=== PATIENT | male | born 1955 | race American Indian/Alaskan Native ===

== ENCOUNTER 2017-07-16 20:12 | Emergency (ER) | payer OTHER ==
[2017-07-16 21:07] LABS: Basophils % (Auto) 0.8 % (0.0-1.8); Hematocrit 33.7 % (35.5-45.6); Hemoglobin 11.7 gm/dl (11.8-15.2); Mean Corpuscular HGB Conc 35 % (32-34); Mean Corpuscular Hemoglobin 30 pg (28-32); Mean Corpuscular Volume 86 fl (84-94); Platelet Count 192 K/mm3 (140-440); Red Blood Count 3.91 M/mm3 (3.65-5.03); Red Cell Distribution Width 13.1 % (13.2-15.2); White Blood Count 5.1 K/mm3 (4.5-11.0)
[2017-07-16 21:17] LABS: INR 0.97 (0.87-1.13)
[2017-07-16 21:18] LABS: Partial Thromboplastin Time 33.2 Sec. (24.2-36.6)
[2017-07-16 21:29] LABS: Anion Gap 20 mmol/L; BUN/Creatinine Ratio 14.28; Blood Urea Nitrogen 10 mg/dL (9-20); Calcium 9.2 mg/dL (8.4-10.2); Carbon Dioxide 23 mmol/L (22-30); Chloride 93.6 mmol/L (98-107); Glucose 119 mg/dL (75-100); Potassium 3.5 mmol/L (3.6-5.0); Sodium 133 mmol/L (137-145)
--- NOTE | 2017-07-16 21:55 | Cat Scan Report ---
FINAL REPORT PROCEDURE: CT HEAD/BRAIN WO CON TECHNIQUE: Computerized tomography of the head was performed without contrast material. HISTORY: neuro deficits \T\lt; 6hrs or sx present upon awakening COMPARISON: No prior studies are available for comparison. FINDINGS: Skull and scalp: Normal. Paranasal sinuses: Normal. Ventricles and subarachnoid spaces: Mild dilatation. Cerebrum: Mild atrophy. There is diminished density of the left frontal and temporal regions with volume loss. There is peripheral increased density suggesting hemorrhagic transformation. Cerebellum and brainstem: No evidence of hemorrhage, acute infarction or mass. Vasculature: Normal. Comments: None. IMPRESSION: Left frontal temporal infarct with hemorrhagic transformation. No shift of midline structures. Results discussed with Dr. Cordero at 9:50 p.m.
--- NOTE | 2017-07-16 23:55 | Emergency Department Report ---
HPI - General Chief Complaint: Neuro Symptoms/Deficit Time Seen by Provider: 07/16/17 22:02 - HPI HPI: This is a 61-year-old -Citizen Of [place] male who presents to the ED with severe right facial numbness, dysarthria, right upper extremity weakness. Patient stated history of CVA in April after which he had long rehabilitation stay with improvement of his symptoms. 6 hours ago he started having the above-mentioned symptoms worse than before. NIH SCALE: 2 ED Past Medical Hx - Past Medical History Previous Medical History?: Yes Hx Hypertension: Yes Hx CVA: Yes (05/15/17 & ~06/09/17) Hx Diabetes: Yes Additional medical history: Rt side weakness & slurred speech from prior CVAs - Surgical History Past Surgical History?: No - Social History Smoking Status: Never Smoker Substance Use Type: None - Medications Home Medications: Home Medications Medication Instructions Recorded Confirmed Last Taken Type Metformin HCl [Metformin HCl ER] 500 mg PO QDAY 10/16/13 07/16/17 07/15/17 History Amantadine [Symmetrel] 100 mg PO BID 07/16/17 07/16/17 07/15/17 History AtorvaSTATin [Lipitor] 40 mg PO QHS 07/16/17 07/16/17 07/15/17 History Citalopram [Celexa] 10 mg PO DAILY 07/16/17 07/16/17 07/15/17 History Insulin Glargine [Lantus] 0 units SQ QHS 07/16/17 07/16/17 07/15/17 History Insulin Lispro [HumaLOG VIAL] 0 units SQ AC 07/16/17 07/16/17 07/15/17 History Tamsulosin [Flomax] 0.4 mg PO QDAY 07/16/17 07/16/17 07/15/17 History amLODIPine [Norvasc] 10 mg PO DAILY 07/16/17 07/16/17 07/15/17 History ED Review of Systems ROS: Stated complaint: TREMORS Other details as noted in HPI Comment: All other systems reviewed and negative Musculoskeletal: as per HPI Neurological: headache, weakness, numbness, paresthesias Physical Exam - Physical Exam Vital Signs: Vital Signs 07/16/17 07/16/17 07/16/17 20:15 21:58 22:01 Temperature 97.7 F Pulse Rate 77 83 77 Respiratory 20 12 14 Rate Blood Pressure 140/90 156/84 O2 Sat by Pulse 100 100 Oximetry 07/16/17 07/16/17 22:03 23:00 Temperature 97.7 F Pulse Rate 98 H 66 Respiratory 18 11 L Rate Blood Pressure 156/84 142/83 O2 Sat by Pulse 100 100 Oximetry Physical Exam: - General Limitations: No Limitations General appearance: alert, in no apparent distress - Head Head exam: Present: atraumatic, normocephalic - Eye Eye exam: Present: normal appearance - ENT ENT exam: Present: mucous membranes moist - Neck Neck exam: Present: normal inspection - Respiratory Respiratory exam: Present: normal lung sounds bilaterally. Absent: respiratory distress - Cardiovascular Cardiovascular Exam: Present: normal rhythm, tachycardia. Absent: systolic murmur, diastolic murmur, rubs, gallop - GI/Abdominal GI/Abdominal exam: Present: soft, normal bowel sounds - Extremities Exam Extremities exam: Present: normal inspection - Back Exam Back exam: Present: normal inspection - Neurological Exam Neurological exam: Present: alert, oriented X3, sensory deficit right face, right upper extremity weakness, Strength: 4/5. - Skin Skin exam: Present: warm, dry, intact, normal color. Absent: rash ED Course Vital Signs 07/16/17 07/16/17 07/16/17 20:15 21:58 22:01 Temperature 97.7 F Pulse Rate 77 83 77 Respiratory 20 12 14 Rate Blood Pressure 140/90 156/84 O2 Sat by Pulse 100 100 Oximetry 07/16/17 07/16/17 22:03 23:00 Temperature 97.7 F Pulse Rate 98 H 66 Respiratory 18 11 L Rate Blood Pressure 156/84 142/83 O2 Sat by Pulse 100 100 Oximetry - Reevaluation(s) Reevaluation #1: 07/16/17 23:51 Patient accepted at [facility] for our level of care. ED Medical Decision Making - Lab Data Result diagrams: 07/16/17 20:55 07/16/17 20:55 Critical care attestation.: If time is entered above; I have spent that time in minutes in the direct care of this critically ill patient, excluding procedure time. ED Disposition Clinical Impression: Hemorrhagic cerebrovascular accident (CVA) Disposition: DC/TX-70 ANOTHER TYPE HLTHCARE Is pt being admited?: No Does the pt Need Aspirin: No Condition: Stable Referrals: AKINMADE,CHAVEZ OMOLOLA, MD [Primary Care Provider] - 3-5 Days
[2017-07-17 02:43] VITALS: BP 152/90
--- NOTE | 2017-07-17 07:37 | XRay Report ---
AP CHEST: HISTORY: CVA AP view of the chest demonstrates a normal mediastinal and cardiac contour with clear lungs and normal bony and soft tissue structures. IMPRESSION: Unremarkable AP chest.
== END 2017-07-17 02:45 | disposition other institution (70) ==
LOC: ED 20:12
DX: I62.9 Nontraumatic intracranial hemorrhage, unspecified (principal); I10 Essential (primary) hypertension; E11.9 Type 2 diabetes mellitus without complications; Z79.4 Long term (current) use of insulin
CPT/HCPCS: 36415; 70450; 71010; 80048; 84484; 85025; 85610; 85670; 85730; 93005; 93010

== ENCOUNTER 2018-03-06 03:56 | Inpatient (IN) | payer SELFPAY ==
[2018-03-06 04:51] LABS: Basophils # (Auto) 0.1 K/mm3 (0.0-0.1); Basophils % (Auto) 0.8 % (0.0-1.8); Eosinophils # (Auto) 0.4 K/mm3 (0.0-0.4); Eosinophils % (Auto) 4.8 % (0.0-4.3); Hematocrit 36.7 % (35.5-45.6); Hemoglobin 11.9 gm/dl (11.8-15.2); Lymphocytes # (Auto) 4.1 K/mm3 (1.2-5.4); Lymphocytes % (Auto) 44.4 % (13.4-35.0); Mean Corpuscular HGB Conc 32 % (32-34); Mean Corpuscular Hemoglobin 29 pg (28-32); Mean Corpuscular Volume 89 fl (84-94); Monocytes # (Auto) 0.6 K/mm3 (0.0-0.8); Monocytes % (Auto) 6.4 % (0.0-7.3); Platelet Count 208 K/mm3 (140-440); Red Blood Count 4.15 M/mm3 (3.65-5.03); Red Cell Distribution Width 13.8 % (13.2-15.2)
[2018-03-06 04:59] LABS: Bilirubin,Urine NEG (Negative); Blood,Urine MOD (Negative); Color,Urine Yellow (Yellow); Urobilinogen,Urine < 2.0 mg/dL (<2.0)
[2018-03-06 05:07] LABS: Amphetamine Screen,Urine PRESUMPTIVE NEGATIVE; Cannabinoid Screen,Urine PRESUMPTIVE NEGATIVE; Cocaine Screen,Urine PRESUMPTIVE NEGATIVE; Methadone Screen,Urine PRESUMPTIVE NEGATIVE; Opiate Screen,Urine PRESUMPTIVE NEGATIVE
[2018-03-06 05:09] LABS: Alanine Aminotransferase 28 units/L (7-56); Albumin 4.1 g/dL (3.9-5); BUN/Creatinine Ratio 12; Blood Urea Nitrogen 12 mg/dL (9-20); Calcium 8.8 mg/dL (8.4-10.2); Hemolysis Index 12
[2018-03-06 05:19] LABS: Benzodiazepines Screen,Urine PRESUMPTIVE POSITIVE
--- NOTE | 2018-03-06 05:27 | Cat Scan Report ---
FINAL REPORT PROCEDURE: CT HEAD/BRAIN WO CON TECHNIQUE: Computerized tomography of the head was performed without contrast material. HISTORY: seizure COMPARISON: 07/16/2017 FINDINGS: Skull and scalp: Normal. Paranasal sinuses: Normal. Ventricles and subarachnoid spaces: There is central and cortical atrophy. There is cavum septum pellucidum.. Cerebrum: No evidence of hemorrhage, acute infarction or mass. There is encephalomalacia in the left frontal and temporal lobes or an old infarct. There is chronic deep white matter ischemic gliosis. Cerebellum and brainstem: No evidence of hemorrhage, acute infarction or mass. There is an old lacunar infarct defect in the left side of the efra. Vasculature: Normal. Comments: None. IMPRESSION: There are chronic ischemic and involutional changes. There is an old infarct in the left frontal and temporal lobe. There is an old lacunar infarct in the left side of the efra. There is no hemorrhage, edema, mass, mass effect or midline shift.
[2018-03-06] MEDS: ATIVAN IV PRN ×2 (07:03→15:16)
--- NOTE | 2018-03-06 07:18 | Emergency Department Report ---
ED Seizure HPI - General Chief Complaint: Seizure Stated Complaint: SEIZURE Time Seen by Provider: 03/06/18 07:17 Source: EMS Mode of arrival: Stretcher Limitations: Altered Mental Status - History of Present Illness Initial Comments: 62 year old male with a history of seizures status post CVA in April. His last seizure was in May. He arrives with his states that he is taking his Keppra. He had 3 seizures that were witnessed this morning. He was transferred via EMS and given Ativan. He is postictal at this time. His is able to tell me that he did not suffer any injury. The patient is responsive but still lethargic. He does not complain of pain. His states that he has a residual right fritz-paracystic secondary to his previous stroke but he is able to ambulate. MD Complaint: seizure -: hour(s) Description of Episode: tonic-clonic movement -: minutes(s) Witnessed:: Yes Trauma: No Seizure History: known seizure disorder Place: home Treatments Prior to Arrival: benzodiazepines (on arrival ) - Related Data Home Medications Medication Instructions Recorded Confirmed Last Taken Metformin HCl [Metformin HCl ER] 500 mg PO QDAY 10/16/13 03/06/18 07/15/17 Amantadine [Symmetrel] 100 mg PO BID 07/16/17 03/06/18 07/15/17 AtorvaSTATin [Lipitor] 40 mg PO QHS 07/16/17 03/06/18 07/15/17 Tamsulosin [Flomax] 0.4 mg PO QDAY 07/16/17 03/06/18 07/15/17 amLODIPine [Norvasc] 10 mg PO DAILY 07/16/17 03/06/18 07/15/17 Aspirin [Low Dose Aspirin EC] 81 mg PO DAILY 03/06/18 03/06/18 Unknown Magnesium Oxide 400 mg PO DAILY 03/06/18 03/06/18 Unknown Mirtazapine 30 mg PO HS 03/06/18 03/06/18 Unknown levETIRAcetam [Keppra TAB] 1,000 mg PO BID 03/06/18 03/06/18 Unknown Allergies Allergy/AdvReac Type Severity Reaction Status Date / Time No Known Allergies Allergy Unverified 10/16/13 18:17 ED Review of Systems ROS: Stated complaint: SEIZURE Other details as noted in HPI Comment: Unobtainable due to pts medical conditions (still post ictal but no complaint) ED Past Medical Hx - Past Medical History Previous Medical History?: Yes Hx Hypertension: Yes Hx CVA: Yes (05/15/17 & ~06/09/17) Hx Diabetes: Yes Hx Seizures: Yes Additional medical history: Rt side weakness & slurred speech from prior CVAs - Social History Smoking Status: Former Smoker Substance Use Type: None - Medications Home Medications: Home Medications Medication Instructions Recorded Confirmed Last Taken Type Metformin HCl [Metformin HCl ER] 500 mg PO QDAY 10/16/13 03/06/18 07/15/17 History Amantadine [Symmetrel] 100 mg PO BID 07/16/17 03/06/18 07/15/17 History AtorvaSTATin [Lipitor] 40 mg PO QHS 07/16/17 03/06/18 07/15/17 History Tamsulosin [Flomax] 0.4 mg PO QDAY 07/16/17 03/06/18 07/15/17 History amLODIPine [Norvasc] 10 mg PO DAILY 07/16/17 03/06/18 07/15/17 History Aspirin [Low Dose Aspirin EC] 81 mg PO DAILY 03/06/18 03/06/18 Unknown History Magnesium Oxide 400 mg PO DAILY 03/06/18 03/06/18 Unknown History Mirtazapine 30 mg PO HS 03/06/18 03/06/18 Unknown History levETIRAcetam [Keppra TAB] 1,000 mg PO BID 03/06/18 03/06/18 Unknown History ED Physical Exam - General Limitations: Altered Mental Status General appearance: alert, in no apparent distress - Head Head exam: Present: atraumatic, normocephalic - Eye Eye exam: Present: normal appearance, PERRL, EOMI. Absent: scleral icterus - ENT ENT exam: Present: normal exam, mucous membranes moist - Neck Neck exam: Present: normal inspection. Absent: tenderness, meningismus - Respiratory Respiratory exam: Present: normal lung sounds bilaterally. Absent: respiratory distress - Cardiovascular Cardiovascular Exam: Present: regular rate, normal rhythm. Absent: systolic murmur, diastolic murmur, rubs, gallop - GI/Abdominal GI/Abdominal exam: Present: soft, normal bowel sounds. Absent: distended, tenderness, guarding, rebound, rigid - Rectal Rectal exam: Present: deferred - Extremities Exam Extremities exam: Present: normal inspection - Back Exam Back exam: Present: normal inspection - Neurological Exam Neurological exam: Present: altered, other (patient does appear to have a right hemiparesthesias right arm greater than right leg but likely right leg weakness as well) - Psychiatric Psychiatric exam: Present: normal mood, flat affect - Skin Skin exam: Present: warm, dry, intact, normal color. Absent: rash ED Course Vital Signs 03/06/18 03/06/18 03/06/18 04:03 04:10 05:46 Temperature 98.3 F 98.3 F Pulse Rate 120 H 120 H 89 Respiratory 22 22 13 Rate Blood Pressure 94/56 119/77 Blood Pressure 94/56 [Left] O2 Sat by Pulse 100 100 100 Oximetry 03/06/18 03/06/18 03/06/18 06:00 06:16 06:30 Temperature Pulse Rate 101 H 104 H 91 H Respiratory 16 17 17 Rate Blood Pressure 136/86 136/86 140/81 Blood Pressure [Left] O2 Sat by Pulse 100 100 Oximetry 03/06/18 03/06/18 03/06/18 06:46 07:00 07:16 Temperature Pulse Rate 97 H 113 H 106 H Respiratory 17 19 16 Rate Blood Pressure 140/81 150/79 150/79 Blood Pressure [Left] O2 Sat by Pulse 100 100 Oximetry 03/06/18 03/06/18 03/06/18 07:30 07:46 08:00 Temperature 98.3 F Pulse Rate 104 H 108 H 96 H Respiratory 14 16 16 Rate Blood Pressure 131/88 131/88 124/75 Blood Pressure 131/88 [Left] O2 Sat by Pulse 100 100 100 Oximetry - Reevaluation(s) Reevaluation #1: The patient is given a gram of Keppra. He will be admitted by the hospitalist service further care and evaluation. A CT of his head showed nothing acute. 03/06/18 09:49 ED Medical Decision Making - Lab Data Result diagrams: 03/06/18 04:35 03/06/18 04:35 Laboratory Results - last 24 hr 03/06/18 03/06/18 03/06/18 04:22 04:22 04:35 WBC 9.2 RBC 4.15 Hgb 11.9 Hct 36.7 MCV 89 MCH 29 MCHC 32 RDW 13.8 Plt Count 208 Lymph % (Auto) 44.4 H [place] % (Auto) 6.4 Eos % (Auto) 4.8 H Baso % (Auto) 0.8 Lymph # 4.1 [place] # 0.6 Eos # 0.4 Baso # 0.1 Seg Neutrophils % 43.6 Seg Neutrophils # 4.0 Sodium Potassium Chloride Carbon Dioxide Anion Gap BUN Creatinine Estimated GFR BUN/Creatinine Ratio Glucose Calcium Total Bilirubin AST ALT Alkaline Phosphatase Total Protein Albumin Albumin/Globulin Ratio Urine Color Yellow Urine Turbidity Clear Urine pH 6.0 Ur Specific [place] 1.010 Urine Protein 100 mg/dl Urine Glucose (UA) Neg Urine Ketones Neg Urine Blood Mod Urine Nitrite Neg Urine Bilirubin Neg Urine Urobilinogen < 2.0 Ur Leukocyte Esterase Neg Urine WBC (Auto) 2.0 Urine RBC (Auto) 2.0 Urine Opiates Screen Presumptive negative Urine Methadone Screen Presumptive negative Ur Barbiturates Screen Presumptive negative Ur Phencyclidine Scrn Presumptive negative Ur Amphetamines Screen Presumptive negative U Benzodiazepines Scrn Presumptive positive Urine Cocaine Screen Presumptive negative U Marijuana (THC) Screen Presumptive negative Drugs of Abuse Note Disclamer 03/06/18 04:35 WBC RBC Hgb Hct MCV MCH MCHC RDW Plt Count Lymph % (Auto) [place] % (Auto) Eos % (Auto) Baso % (Auto) Lymph # [place] # Eos # Baso # Seg Neutrophils % Seg Neutrophils # Sodium 137 Potassium 3.7 Chloride 94.0 L Carbon Dioxide 10 L Anion Gap 37 BUN 12 Creatinine 1.0 Estimated GFR > 60 BUN/Creatinine Ratio 12 Glucose 230 H Calcium 8.8 Total Bilirubin 0.30 AST 20 ALT 28 Alkaline Phosphatase 91 Total Protein 7.4 Albumin 4.1 Albumin/Globulin Ratio 1.2 Urine Color Urine Turbidity Urine pH Ur Specific [place] Urine Protein Urine Glucose (UA) Urine Ketones Urine Blood Urine Nitrite Urine Bilirubin Urine Urobilinogen Ur Leukocyte Esterase Urine WBC (Auto) Urine RBC (Auto) Urine Opiates Screen Urine Methadone Screen Ur Barbiturates Screen Ur Phencyclidine Scrn Ur Amphetamines Screen U Benzodiazepines Scrn Urine Cocaine Screen U Marijuana (THC) Screen Drugs of Abuse Note - Radiology Data Radiology results: report reviewed Critical care attestation.: If time is entered above; I have spent that time in minutes in the direct care of this critically ill patient, excluding procedure time. ED Disposition Clinical Impression: Recurrent seizures, History of CVA (cerebrovascular accident) Disposition: DC-01 TO HOME OR SELFCARE Is pt being admited?: Yes Does the pt Need Aspirin: Yes Condition: Stable Referrals: RAMÓN CROW MD [Primary Care Provider] - 3-5 Days Time of Disposition: 09:50
[2018-03-06] MEDS ORDERED: KEPPRA 1,000 MG/NS 0.75% 100ML 1,000 MG/100 ML BAG IV ONE (07:19)
[2018-03-06] MEDS ORDERED: ASPIRIN PO ONE (09:50)
--- NOTE | 2018-03-06 10:36 | History and Physical Report ---
History of Present Illness Date of examination: 03/06/18 Date of admission: 03/06/18. History of present illness: This is 62 year old male with a history of seizures on keppra, status post CVA with right hameparesis but ambulatory at his baseline arrived with his by EMS as he had 3 witnessed seizure episodes this morning. He was transferred via EMS and given Ativan on route. He is postictal at this time. there is no repot of any head injury. The patient is responsive but still lethargic in the ER. He does not complain of any chest pain, focal deficit, headache or vision loss. head Ct in the ER showed prior CVA but no new finding. he was loaded with Iv keppra in the Er. he will be admitted for further evaluation and management. Past Medical History: Hypertension, diabetes, tendinitis, CVA Past Surgical History: denies Family History: (-) known inherited disease Social History: Former smoker, quit 10 years ago. Denies drinking or drug use Allergies: NKDA Review of System: Constitutional: no fever, no chills, no weight loss Ears, eyes, nose, mouth and throat: no nasal congestion, no nasal discharge, no sinus pressure, no vision change, no red eye. Neck: No neck pain or rigidity. Cardiovascular: No chest pain, no orthopnea, no palpitations, no leg swelling Respiratory: No shortness of breath, no cough, no congestion, no wheezing Gastrointestinal: no abdominal pain, no nausea, no vomiting Genitourinary : no dysuria, no hematuria Musculoskeletal: no joint swelling or muscle ache Integumentary: no rash, no pruritis Neurological: no parathesias, no numbness, no tingling Endocrine: no cold or heat intolerance, no polyuria or polydipsia Hematologic/Lymphatic: no easy bruising, no easy bleeding, no gland swelling Allergic/Immunologic: no urticaria, no angioedema. Medications and Allergies Allergies Allergy/AdvReac Type Severity Reaction Status Date / Time No Known Allergies Allergy Unverified 10/16/13 18:17 Home Medications Medication Instructions Recorded Confirmed Last Taken Type Metformin HCl [Metformin HCl ER] 500 mg PO QDAY 10/16/13 03/06/18 07/15/17 History Amantadine [Symmetrel] 100 mg PO BID 07/16/17 03/06/18 07/15/17 History AtorvaSTATin [Lipitor] 40 mg PO QHS 07/16/17 03/06/18 07/15/17 History Tamsulosin [Flomax] 0.4 mg PO QDAY 07/16/17 03/06/18 07/15/17 History amLODIPine [Norvasc] 10 mg PO DAILY 07/16/17 03/06/18 07/15/17 History Aspirin [Low Dose Aspirin EC] 81 mg PO DAILY 03/06/18 03/06/18 Unknown History Magnesium Oxide 400 mg PO DAILY 03/06/18 03/06/18 Unknown History Mirtazapine 30 mg PO HS 03/06/18 03/06/18 Unknown History levETIRAcetam [Keppra TAB] 1,000 mg PO BID 03/06/18 03/06/18 Unknown History Active Meds: Active Medications Amantadine HCl (Symmetrel) 100 mg PO BID [facility] Amlodipine Besylate (Norvasc) 10 mg PO DAILY [facility] Aspirin (Halfprin Ec) 81 mg PO DAILY [facility] Atorvastatin Calcium (Lipitor) 40 mg PO QHS [facility] Enoxaparin Sodium (Lovenox) 40 mg SUB-Q QDAY [facility] Insulin Human Regular (Humulin R) 0 units SUB-Q ACHS [facility]; Protocol Lorazepam (Ativan) 2 mg IV Q1H PRN PRN Reason: Seizures Last Admin: 03/06/18 07:03 Dose: 2 mg Magnesium Oxide (Mag-Ox) 400 mg PO DAILY [facility] Mirtazapine (Remeron) 30 mg PO HS [facility] Miscellaneous Medication (Levetiracetam [Keppra Tab]) 1,000 mg PO BID [facility] Tamsulosin HCl (Flomax) 0.4 mg PO QDAY [facility] Exam - Physical Exam Narrative exam: GENERAL: well-developed and well-nourished AAM lying on bed appeared to be in no discomfort. Appears slightly lethargic HEENT: Normocephalic. Atraumatic. No conjunctival congestion or icterus. Patient has moist mucous membranes. NECK: Supple. Trachea midline. CHEST/LUNGS: Clear to auscultated bilaterally, breathing nonlabored. No wheezes crackles or rhonchi. HEART/CARDIOVASCULAR: Regular in rate and rhythm. S1 and S2 positive. ABDOMEN: Abdomen is soft, nontender. Patient has normal bowel sounds. SKIN: There is no rash. Warm and dry. NEURO: Right-sided motor deficit. Follows command. MUSCULOSKELETAL: No joint effusion or tenderness. EXTRIMITY: No edema, no cyanosis or clubbing. PSYCH: No agitation. - Constitutional Vitals: Temp Pulse Resp BP Pulse Ox 98.3 F 96 H 16 124/75 100 03/06/18 07:30 03/06/18 08:00 03/06/18 08:00 03/06/18 08:00 03/06/18 08:00 Results - Labs CBC & Chem 7: 03/06/18 04:35 03/06/18 04:35 Labs: Abnormal lab results 03/06/18 03/06/18 Range/Units 04:35 04:35 Lymph % (Auto) 44.4 H (13.4-35.0) % Eos % (Auto) 4.8 H (0.0-4.3) % Chloride 94.0 L (98-107) mmol/L Carbon Dioxide 10 L (22-30) mmol/L Glucose 230 H (75-100) mg/dL - Imaging and Cardiology CT Scan - head: report reviewed (CT head: There are chronic ischemic and involutional changes. There is an old infarct in the left frontal and temporal lobe, old lacunar infarct in the left side of the efra. 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 - We'll consult neurology and resume his home regimen of Keppra - We'll also obtain EEG - We'll resume all home medications - Place on ADA diet and sliding scale insulin - Upper check every before meals at bedtime - DVT prophylaxis with Lovenox, GI prophylaxis with Pepcid - We'll monitor clinically with frequent neuro exam - PT eval before discharge
[2018-03-06] MEDS: HumuLIN R SUB-Q SCH ×2 (11:48→17:42)
[2018-03-06] MEDS ORDERED: ATIVAN IV PRN (13:25)
--- NOTE | 2018-03-06 15:42 | Consultation ---
History of Present Illness Consult date: 03/06/18 History of present illness: plan to add vimpat for seizure control as there was breakthrough seizure current dose of keppr is appropriate Medications and Allergies Allergies Allergy/AdvReac Type Severity Reaction Status Date / Time No Known Allergies Allergy Unverified 10/16/13 18:17 Home Medications Medication Instructions Recorded Confirmed Last Taken Type Metformin HCl [Metformin HCl ER] 500 mg PO QDAY 10/16/13 03/06/18 07/15/17 History Amantadine [Symmetrel] 100 mg PO BID 07/16/17 03/06/18 07/15/17 History AtorvaSTATin [Lipitor] 40 mg PO QHS 07/16/17 03/06/18 07/15/17 History Tamsulosin [Flomax] 0.4 mg PO QDAY 07/16/17 03/06/18 07/15/17 History amLODIPine [Norvasc] 10 mg PO DAILY 07/16/17 03/06/18 07/15/17 History Aspirin [Low Dose Aspirin EC] 81 mg PO DAILY 03/06/18 03/06/18 Unknown History Magnesium Oxide 400 mg PO DAILY 03/06/18 03/06/18 Unknown History Mirtazapine 30 mg PO HS 03/06/18 03/06/18 Unknown History levETIRAcetam [Keppra TAB] 1,000 mg PO BID 03/06/18 03/06/18 Unknown History Active Meds: Active Medications Amantadine HCl (Symmetrel) 100 mg PO BID [facility] Amlodipine Besylate (Norvasc) 10 mg PO DAILY [facility] Aspirin (Halfprin Ec) 81 mg PO DAILY [facility] Atorvastatin Calcium (Lipitor) 40 mg PO QHS [facility] Enoxaparin Sodium (Lovenox) 40 mg SUB-Q QDAY@1000 [facility] Insulin Human Regular (Humulin R) 0 units SUB-Q ACHS [facility]; Protocol Last Admin: 03/06/18 11:48 Dose: Not Given Levetiracetam (Keppra) 1,000 mg PO BID [facility] Lorazepam (Ativan) 2 mg IV Q1H PRN PRN Reason: Seizures Last Admin: 03/06/18 15:16 Dose: 2 mg Lorazepam (Ativan) 2 mg IV Q4H PRN PRN Reason: Agitation Magnesium Oxide (Mag-Ox) 400 mg PO DAILY [facility] Mirtazapine (Remeron) 30 mg PO HS [facility] Tamsulosin HCl (Flomax) 0.4 mg PO QDAY [facility] Physical Examination - Vital Signs Vital Signs: Vital Signs Temp Pulse Resp BP Pulse Ox 98.3 F 120 H 22 94/56 100 03/06/18 04:03 03/06/18 04:03 03/06/18 04:03 03/06/18 04:03 03/06/18 04:03 Results - Laboratory Findings CBC and BMP: 03/06/18 04:35 03/06/18 04:35 Abnormal Lab Findings: Abnormal Labs 03/06/18 03/06/18 03/06/18 04:35 04:35 11:51 Lymph % (Auto) 44.4 H Eos % (Auto) 4.8 H Chloride 94.0 L Carbon Dioxide 10 L Glucose 230 H POC Glucose 110 H
[2018-03-06] MEDS ORDERED: NON-FORMULARY (Levetiracetam [Keppra Tab] 1,000 MG) PO SCH (22:00)
[2018-03-06] MEDS: VIMPAT PO SCH (23:30)
[2018-03-06] MEDS: SYMMETREL PO SCH (23:30)
[2018-03-06] MEDS: KEPPRA PO SCH (23:30)
[2018-03-06] MEDS: REMERON PO SCH (23:30)
[2018-03-07] MEDS: HumuLIN R SUB-Q SCH ×5 (01:42→22:55)
--- NOTE | 2018-03-07 09:51 | Progress Note ---
Subjective Date of service: 03/07/18 Interval history: discussed the new onset of seizures with suspect this is due to recent sstroke vimpat added for seizure control EEG tomorrow Objective - Vital Sign Vital Signs - 12hr 03/06/18 03/06/18 03/07/18 22:00 23:16 04:42 Temperature 98.8 F 98.2 F Pulse Rate 78 71 Pulse Rate [ 85 From Monitor] Respiratory 18 18 18 Rate Blood Pressure 142/92 131/84 O2 Sat by Pulse 100 100 Oximetry 03/07/18 07:36 Temperature 97.6 F Pulse Rate 69 Pulse Rate [ From Monitor] Respiratory 18 Rate Blood Pressure 129/80 O2 Sat by Pulse 100 Oximetry - Laboratory Findings CBC and BMP: 03/06/18 04:35 03/06/18 04:35 Abnormal Lab Findings: Abnormal Labs 03/06/18 03/06/18 03/06/18 04:35 04:35 11:51 Lymph % (Auto) 44.4 H Eos % (Auto) 4.8 H Chloride 94.0 L Carbon Dioxide 10 L Glucose 230 H POC Glucose 110 H 03/07/18 03/07/18 01:29 06:30 Lymph % (Auto) Eos % (Auto) Chloride Carbon Dioxide Glucose POC Glucose 148 H 154 H
[2018-03-07] MEDS: NORVASC PO SCH (09:59)
[2018-03-07] MEDS: MAG-OX PO SCH (09:59)
[2018-03-07] MEDS: VIMPAT PO SCH ×2 (09:59→22:55)
[2018-03-07] MEDS: KEPPRA PO SCH ×2 (09:59→22:55)
[2018-03-07] MEDS: HALFPRIN EC PO SCH (10:00)
[2018-03-07] MEDS: FLOMAX PO SCH (10:00)
[2018-03-07] MEDS: SYMMETREL PO SCH ×2 (10:00→22:55)
[2018-03-07] MEDS ORDERED: LOVENOX SUB-Q SCH (10:00)
[2018-03-07] MEDS: LOVENOX SUB-Q SCH (10:00)
--- NOTE | 2018-03-07 11:14 | Consultation ---
HISTORY OF PRESENT ILLNESS: This is a 62-year-old black male that presents to [facility] after having had a generalized seizure. Review of his old records indicates that he has had a prior history of chronic and subchronic infarcts in the left cerebral hemisphere, old lacunar infarcts, also superficial cortical infarcts in the frontal and temporal area. He had not been taking anticonvulsant therapy in the past. He was noticed by his when he woke up to be jerking as a generalized seizure. Laboratories at that point showed his glucose to be 110. Remainder of the other laboratories showed the creatinine to be 1.1. Liver function studies, AST 20, ALT 28. PHYSICAL EXAMINATION: GENERAL: On my examination of the patient, at this point, he is fully alert, responsive. Yarn Rewinder strength is equal. Motor tone normal. Speech clear. No aphasia present. VITAL SIGNS: Reveal blood pressure to be 131/84, temperature 98.2, pulse rate 71, respirations 18. He is afebrile. NECK: Supple. NEUROLOGIC: Motor tone normal. No focal seizure activity present. Motor and sensory examination otherwise unremarkable. The patient is fully alert, conscious, oriented x 3 and appropriate. IMPRESSION: This patient has had multiple strokes in the left cerebral hemisphere all ischemic from appearances. This was a generalized seizure. He should be continued on anticonvulsant medication at the time of discharge. I do notice that his blood sugars have been elevated. This may have been also an aggravating factor with at least 1 presenting glucose of being 230. Discussed the case with the , probably Keppra therapy will be the appropriate discharge medication at 1000 mg a day and there is this question as to whether he may have had breakthrough seizures, I am not sure whether he was in fact taking any anticonvulsants. I will double check this with the to be certain that this was not a breakthrough seizure while he was on Keppra initially. If he was then simply increase the dose to 2000 mg a day or sometimes 750 b.i.d. might even be appropriate rather than adding a second drug as often just simply increasing the dose of Keppra will reapproximate seizure control. JOB# [id number] RUBINA/NTS
--- NOTE | 2018-03-07 14:25 | Progress Note ---
Assessment and Plan Breakthrough seizures History of old CVA with right hemiparesis Hypertension, benign, on amlodipine at home Diabetes mellitus type 2, on oral hypoglycemic HLD, on statin Underlying dementia, appears to be at baseline - Monitor patient to telemetry. - Consult neurology and resumed his home regimen of Keppra, also added vimpat - plan for EEG tomorrow - cont all home medications - cont on ADA diet and sliding scale insulin - BG check every before meals at bedtime - DVT prophylaxis with Lovenox, GI prophylaxis with Pepcid - We'll monitor clinically with frequent neuro exam - PT eval ordered Subjective Date of service: 03/07/18 Interval history: Pt seen and examined no acute event O/N no further seizure episode Updated at bedside PT eval ordered Objective - Constitutional Vitals: Vital Signs - 12hr 03/07/18 03/07/18 03/07/18 04:42 07:36 09:59 Temperature 98.2 F 97.6 F Pulse Rate 71 69 Respiratory 18 18 Rate Blood Pressure 131/84 129/80 139/90 O2 Sat by Pulse 100 100 Oximetry 03/07/18 12:20 Temperature 98.5 F Pulse Rate 84 Respiratory 18 Rate Blood Pressure 120/78 O2 Sat by Pulse 100 Oximetry - Labs CBC & Chem 7: 03/06/18 04:35 03/06/18 04:35 Labs: Abnormal lab results 03/07/18 03/07/18 03/07/18 Range/Units 01:29 06:30 12:27 POC Glucose 148 H 154 H 150 H (70-105)
[2018-03-07] MEDS: REMERON PO SCH (22:55)
[2018-03-08] MEDS: HumuLIN R SUB-Q SCH ×2 (07:30→11:30)
[2018-03-08] MEDS: KEPPRA PO SCH (10:10)
[2018-03-08] MEDS: HALFPRIN EC PO SCH (10:11)
[2018-03-08] MEDS: MAG-OX PO SCH (10:11)
[2018-03-08] MEDS: NORVASC PO SCH (10:11)
[2018-03-08] MEDS: FLOMAX PO SCH (10:11)
[2018-03-08] MEDS: VIMPAT PO SCH (10:11)
[2018-03-08] MEDS: SYMMETREL PO SCH (10:12)
[2018-03-08] MEDS: LOVENOX SUB-Q SCH (10:12)
--- NOTE | 2018-03-08 11:54 | Discharge Summary ---
Providers - Providers Date of Admission: 03/06/18 12:25 Date of discharge: 03/08/18 Attending physician: ELPIDIO STEVE 03/06/18 13:26 Consult to Physician [CONS] Routine Comment: Consulting Provider: ALEXANDER STOREY Physician Instructions: Reason For Exam: breakthrough seizure 03/07/18 11:58 Physical Therapy Evaluation and Treat [CONS] Routine Comment: Reason For Exam: physical debility Primary care physician: RAMÓN CROW Hospitalization Condition: Stable Hospital course: Discharge diagnosis: Breakthrough seizures History of old CVA with right hemiparesis Hypertension, benign, on amlodipine at home Diabetes mellitus type 2, on oral hypoglycemic HLD, on statin Underlying dementia, appears to be at baseline - Monitor patient to telemetry. - Consult neurology and resumed his home regimen of Keppra, also added vimpat - plan for EEG tomorrow - cont all home medications - cont on ADA diet and sliding scale insulin - BG check every before meals at bedtime - DVT prophylaxis with Lovenox, GI prophylaxis with Pepcid - We'll monitor clinically with frequent neuro exam - PT eval ordered Physical exam: GENERAL: well-developed and well-nourished AAM lying on bed appeared to be in no discomfort. Appears slightly lethargic HEENT: Normocephalic. Atraumatic. No conjunctival congestion or icterus. Patient has moist mucous membranes. NECK: Supple. Trachea midline. CHEST/LUNGS: Clear to auscultated bilaterally, breathing nonlabored. No wheezes crackles or rhonchi. HEART/CARDIOVASCULAR: Regular in rate and rhythm. S1 and S2 positive. ABDOMEN: Abdomen is soft, nontender. Patient has normal bowel sounds. SKIN: There is no rash. Warm and dry. NEURO: Right-sided motor deficit. Follows command. MUSCULOSKELETAL: No joint effusion or tenderness. EXTRIMITY: No edema, no cyanosis or clubbing. PSYCH: No agitation. Disposition: [id number]/TX-06 HOME UNDER HOME HLTH Time spent for discharge: 32 minutes Core Measure Documentation - Palliative Care Palliative Care/ Comfort Measures: Not Applicable - Core Measures Any of the following diagnoses?: none Exam - Constitutional Vitals: Temp Pulse Resp BP Pulse Ox 98.5 F 74 20 122/83 100 03/08/18 08:09 03/08/18 08:09 03/08/18 08:09 03/08/18 08:09 03/08/18 08:09 Plan Activity: fall precautions Weight Bearing Status: Non-Weight Bearing Diet: low fat, low salt Durable Medical Equipment Needed Upon Discharge: Walker-Rolling Follow up with: RAMÓN CROW MD [Primary Care Provider] - 3-5 Days Prescriptions: Lacosamide [Vimpat] 50 mg PO Q12HR #60 tablet
[2018-03-08 16:44] VITALS: BP 118/75
== END 2018-03-08 17:20 | disposition home health service (06) | DRG 101 ==
LOC: ED 03:56 → 3A 12:25
PROVIDERS: ADMIT Internal Medicine; ATTEND Internal Medicine
DX: G40.909 Epilepsy, unspecified, not intractable, without status epilepticus (principal); I69.351 Hemiplegia and hemiparesis following cerebral infarction affecting right dominant side; I10 Essential (primary) hypertension; E78.5 Hyperlipidemia, unspecified; F03.90 Unspecified dementia, unspecified severity, without behavioral disturbance, psychotic disturbance, mood disturbance, and anxiety; Z79.899 Other long term (current) drug therapy; Z79.82 Long term (current) use of aspirin; Z79.84 Long term (current) use of oral hypoglycemic drugs; Z87.891 Personal history of nicotine dependence
CPT/HCPCS: 36415; 70450; 80053; 80307; 81001; 82962; 85025; 93005; 93010; 95819; 96374; A9270-GY; J1650; J1815; J1953; J2060

== ENCOUNTER 2020-11-04 20:07 | Emergency (ER) | payer MEDICARE ==
[2020-11-05 04:22] VITALS: BP 159/88
== END 2020-11-05 09:07 | disposition left against medical advice (07) ==
LOC: ED 20:07
DX: I10 Essential (primary) hypertension (principal); Z53.21 Procedure and treatment not carried out due to patient leaving prior to being seen by health care provider